=== PATIENT | male | born 1985 | race Caucasian/White ===

== ENCOUNTER 2020-08-10 21:20 | Emergency (ER) | payer BC ==
[~2020-08-10] VITALS: Ht 185.4 cm; Wt 95.5 kg
[2020-08-10 21:23] VITALS: BP 152/81; TEMP 97.7
[2020-08-10] MEDS ORDERED: AMOXICILLIN 50500 MG PO (21:47)
[2020-08-10] MEDS ORDERED: NORCO 325 MG-101 TAB PO (21:47)
[2020-08-10] MEDS ORDERED: CLEOCIN HC150 MG/CAP PO (22:12)
[2020-08-10 22:17] VITALS: PULSE 95
== END 2020-08-10 22:17 | disposition home or self-care (01) ==
LOC: COL.ER 21:20
DX: K08.89 Other specified disorders of teeth and supporting structures (principal)